=== PATIENT | male | born 1955 | race Caucasian/White ===

== ENCOUNTER → 2017-08-13 | Outpatient (CLI) | payer BC ==
--- NOTE | 2017-08-13 12:35 | US ---
EXAMINATION TYPE: US kidneys/renal and bladder DATE OF EXAM: 08/13/2017 COMPARISON: NONE CLINICAL HISTORY: R35.0 Frequency of micturition, N28.9 disorder of. Patient states history of renal stones on the right side. EXAM MEASUREMENTS: Right Kidney: 11.2 x 3.6 x 4.3 cm Left Kidney: 12.9 x 5.5 x 4.6 cm Post Void Residual Volume: 150.4 mL Technically difficult exam, kidneys are very hard to visualize. Right Kidney: thinned cortex the known right renal calculi are not seen. Left Kidney: lobular contour. There is questioned mild left hydronephrosis although suboptimally visu alized. Bladder: wnl Bilateral Jets seen: only left jet seen Normal Post Void Residual: no, 150 ml IMPRESSION: 1. Difficult visualization of the kidneys due to technical limitations noted by the bulk sugar handler. Mild left hydronephrosis is questioned in the patient's known right renal calculi are not seen. CT could be performed for further evaluation. 2. Mild right renal cortical thinning suggesting underlying medical renal disease. 3. Abnormal post void residual of 150 mL. Consider urinary bladder outlet obstruction or neurogenic b ladder.
== END | disposition home or self-care (01) ==
LOC: RADUSWWP 08:49
PROVIDERS: ATTEND Family Medicine
DX: N13.0 Hydronephrosis with ureteropelvic junction obstruction (principal); N28.89 Other specified disorders of kidney and ureter; R93.49 Abnormal radiologic findings on diagnostic imaging of other urinary organs
CPT/HCPCS: 76770

== ENCOUNTER 2019-09-17 07:38 | Emergency (ER) | payer BC, MEDICARE ==
[2019-09-17] MEDS ORDERED: FLUORESCEIN STRIPS 1 MG STRIP RIGHT EYE ONE (08:08)
[2019-09-17] MEDS ORDERED: PROPARACAINE 0.5% OPHTH DROPS 15 ML BTL RIGHT EYE STA (08:08)
[2019-09-17] MEDS ORDERED: KETOROLAC 0.5% OPHTH DROPS 5 ML BTL RIGHT EYE STA (08:42)
[2019-09-17] MEDS ORDERED: TOBRAMYCIN 0.3% OPHTH OINT 3.5 GM TUBE RIGHT EYE STA (08:43)
--- NOTE | 2019-09-17 09:02 | ED ---
Eye Problem HPI - General Chief complaint: Eye Problems Stated complaint: Eye injury Time Seen by Provider: 09/17/19 07:55 Source: patient, RN notes reviewed Mode of arrival: ambulatory Limitations: no limitations - History of Present Illness Initial comments: This is a 64-year-old male who states he was playing with his grandchildren when while running running when he got hit in the right eye with a stick complains of a formed by sensation no vision loss however no other injury reported this irritation in the feeling that there is something under his eyelid. No other modifying factors MD chief complaint: eye pain, eye injury - Related Data Previous Rx's Medication Instructions Recorded Ketorolac 0.5% Ophth Soln [Acular 1 drops RIGHT EYE QID #5 ml 09/17/19 0.5%] Tobramycin 0.3% Ophth Oint [Tobrex 1 applic RIGHT EYE TID #3 gm 09/17/19 0.3% Ophth Oint] Allergies Allergy/AdvReac Type Severity Reaction Status Date / Time No Known Allergies Allergy Verified 09/17/19 07:42 Review of Systems ROS Statement: Those systems with pertinent positive or pertinent negative responses have been documented in the HPI. ROS Other: All systems not noted in ROS Statement are negative. Past Medical History Past Medical History: Hypertension, Osteoarthritis (OA) Additional Past Medical History / Comment(s): lt. leg wound History of Any Multi-Drug Resistant Organisms: None Reported Past Surgical History: Hernia Repair Additional Past Surgical History / Comment(s): surgery to remove kidney stones, laser vein treatment -bilateral leg Past Anesthesia/Blood Transfusion Reactions: Postoperative Nausea & Vomiting (PONV) Past Psychological History: No Psychological Hx Reported Smoking Status: Never smoker Past Alcohol Use History: None Reported Past Drug Use History: None Reported - Past Family History Father History Unknown: Yes Family Medical History: Cancer Additional Family Medical History / Comment(s): -leukemia Mother Family Medical History: No Reported History General Exam - General Exam Comments Initial Comments: Is a well-developed well-nourished awake alert oriented times female Limitations: no limitations General appearance: alert, anxious Head exam: Present: atraumatic, normocephalic, normal inspection Eye exam: Present: PERRL, EOMI, conjunctival injection, other (Irritation as the palpebral conjunctiva ) Pupils: Present: normal accommodation ENT exam: Present: normal exam, mucous membranes moist Neck exam: Present: normal inspection, full ROM Neurological exam: Present: alert, oriented X3, CN II-XII intact Psychiatric exam: Present: normal affect, normal mood Course Vital Signs 09/17/19 07:40 Temperature 98.4 F Pulse Rate 80 Respiratory 18 Rate Blood Pressure 163/92 O2 Sat by Pulse 96 Oximetry Procedures - [facility] Protocol (Time Out) Performing Provider: Rashel Tomas Timeout Date: 09/17/19 Timeout Time: 08:20 Patient Identification (2 identifiers required): Verbal, Arm Band Site Marked: Not Applicable Final Confirmation: Procedure, Site - Procedures Initial comment: I did examine the patient's eye using both a slit lamp and it was lamp. I did anesthetize the eye using proparacaine. I then instilled fluorescein dye. Examination under will lamp evidence of a corneal abrasion of the right eye. Eversion of the lids reveals no evidence of foreign body. There is some edema seen to the upper lid however. Examination with a Wood lamp dated I did use a slit lamp. Patient does demonstrate a corneal abrasion to the right cornea as above. No evidence of any anterior chamber injury no hyphema noted.. Patient tolerated this well Medical Decision Making - Medical Decision Making Patient does demonstrate evidence of a corneal abrasion secondary to trauma. Patient will be placed on antibiotic ointment as well as ketorolac eyedrops. He is a follow-up with ophthalmology. We did discuss the pluses and minuses of an eye patch at this time I feel that it is not indicated. He will follow up tomorrow with ophthalmology. He does agree with this decision. Disposition Clinical Impression: Right corneal abrasion Disposition: HOME SELF-CARE Condition: Good Instructions (If sedation given, give patient instructions): Corneal Abrasion ( ED) Prescriptions: Ketorolac 0.5% Ophth Soln [Acular 0.5%] 1 drops RIGHT EYE QID #5 ml Tobramycin 0.3% Ophth Oint [Tobrex 0.3% Ophth Oint] 1 applic RIGHT EYE TID #3 gm Is patient prescribed a controlled substance at d/c from ED?: No Referrals: Dayne Comer DO [Primary Care Provider] - 1-2 days Miracle Saul MD [STAFF PHYSICIAN] - 1-2 days
[2019-09-17 09:17] VITALS: BP 137/78; PULSE 78; RESP 16; TEMP 97.8
== END 2019-09-17 09:16 | disposition home or self-care (01) ==
LOC: EC 07:38
DX: S05.01XA Injury of conjunctiva and corneal abrasion without foreign body, right eye, initial encounter (principal); W22.8XXA Striking against or struck by other objects, initial encounter; Y93.02 Activity, running
CPT/HCPCS: 99283

== ENCOUNTER 2024-09-19 12:31 | Observation (INO) | payer MEDICARE ==
[2024-09-19 12:38] VITALS: TEMP 97.7
--- NOTE | 2024-09-19 13:19 | ED ---
General Adult HPI - General Chief complaint: Syncope Stated complaint: Syncopal episode Time Seen by Provider: 09/19/24 12:49 Source: patient, RN notes reviewed Mode of arrival: EMS Limitations: no limitations - History of Present Illness Initial comments: Patient is a 69-year-old male present to the emergency department with syncopal episode. 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 Patient believes he did pass out completely. Patient states no injury. Patient states he feels fine at this time. No history of similar symptoms previously. No palpitations or chest pain. No dyspnea. No confusion or weakness. No back or abdominal pain. Patient denies any history of dysrhythmia or atrial fibrillation. - Related Data Previous Rx's Medication Instructions Recorded Ketorolac 0.5% Ophth Soln [Acular 1 drops RIGHT EYE QID #5 ml 09/17/19 0.5%] Tobramycin 0.3% Ophth Oint [Tobrex 1 applic RIGHT EYE TID #3 gm 09/17/19 0.3% Ophth Oint] Allergies Allergy/AdvReac Type Severity Reaction Status Date / Time No Known Allergies Allergy Verified 09/19/24 12:36 Review of Systems ROS Statement: Those systems with pertinent positive or pertinent negative responses have been documented in the HPI. ROS Other: All systems not noted in ROS Statement are negative. Constitutional: Denies: fever Eyes: Denies: eye pain ENT: Denies: ear pain Respiratory: Denies: dyspnea Cardiovascular: Denies: chest pain, palpitations Endocrine: Denies: fatigue Gastrointestinal: Denies: abdominal pain Neurological: Denies: headache, weakness, confusion Past Medical History Past Medical History: Hypertension, Osteoarthritis (OA) Additional Past Medical History / Comment(s): lt. leg wound History of Any Multi-Drug Resistant Organisms: None Reported Past Surgical History: Hernia Repair Additional Past Surgical History / Comment(s): surgery to remove kidney stones, laser vein treatment -bilateral leg Past Anesthesia/Blood Transfusion Reactions: Postoperative Nausea & Vomiting (PONV) Past Psychological History: No Psychological Hx Reported Past Alcohol Use History: None Reported Past Drug Use History: None Reported - Past Family History Father History Unknown: Yes Family Medical History: Cancer Additional Family Medical History / Comment(s): -leukemia Mother Family Medical History: No Reported History General Exam Limitations: no limitations General appearance: alert, in no apparent distress Head exam: Present: atraumatic, normocephalic Eye exam: Present: normal appearance, PERRL, EOMI ENT exam: Present: normal oropharynx Neck exam: Present: normal inspection. Absent: tenderness, meningismus Respiratory exam: Present: normal lung sounds bilaterally Cardiovascular Exam: Present: tachycardia, irregular rhythm Expanded Peripheral pulses: 2+: Radial (R), Radial (L), Posterior Tibialis (R), Posterior Tibialis (L) GI/Abdominal exam: Present: soft. Absent: tenderness, pulsatile mass Extremities exam: Present: pedal edema (Patient states chronic). Absent: calf tenderness Neurological exam: Present: alert, oriented X3, CN II-XII intact. Absent: motor sensory deficit Expanded Neurological exam: Present: protecting the airway Patient oriented to: Present: person, place, time Speech: Present: fluid speech Cranial nerves: EOM's Intact: Normal, Facial Sensation: Normal Sensory exam: Upper Extremity Light Touch: Normal, Lower Extremity Light Touch: Normal Motor strength exam: RUE: 5, LUE: 5, RLE: 5, LLE: 5 Eye Response: (4) open spontaneously Motor Response: (6) obeys commands Verbal Response: (5) oriented Psychiatric exam: Present: normal affect, normal mood Skin exam: Present: normal color Course Vital Signs 09/19/24 09/19/24 09/19/24 12:33 12:55 13:42 Temperature 97.7 F Pulse Rate 152 H 126 H Pulse Rate [ 132 H Receiving 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 sent in by a medical professional or institution (, PA, EMERGENCY ROOM TECH, urgent care, hospital, or [facility]...) When possible be specific @ -No Did you speak to anyone other than the patient for history (EMS, parent, family, police, friend...)? What history was obtained from this source @ -No Did you review nursing and triage notes (agree or disagree)? Why? @ -I reviewed and agree with nursing and triage notes Were old charts reviewed (outside hosp., previous admission, EMS record, old EKG, old radiological studies, urgent care reports/EKG's, [facility] records)? Report findings @ -No old charts were reviewed Differential Diagnosis (chest pain, altered mental status, abdominal pain women, abdominal pain men, vaginal bleeding, weakness, fever, dyspnea, syncope, headache, dizziness, GI bleed, back pain, seizure, CVA, palpatations, mental health, musculoskeletal)? @ -Differential Syncope: Valvular disease, hypertrophic cardiomyopathy, pulmonary embolism, tamponade, tachycardia, bradycardia, MO, hypovolemia, hemorrhage, dissection, anemia, intracranial hemorrhage, seizure, hypoglycemia, carbon monoxide poisoning, this is not meant to be an all-inclusive list. EKG interpreted by me (3pts min.). @ -As above X-rays interpreted by me (1pt min.). @ -Chest x-ray shows no acute process CT interpreted by me (1pt min.). @ -CT scan of the brain shows no acute abnormality U/S interpreted by me (1pt. min.). @ -None done What testing was considered but not performed or refused? (CT, X-rays, U/S, labs)? Why? @ -None What meds were considered but not given or refused? Why? @ -None Did you discuss the management of the patient with other professionals (professionals i.e. , PA, EMERGENCY ROOM TECH, lab, RT, psych nurse, marriage and family social worker, water resources business segment leader, teacher, mortgage loan officer, case operator)? Give summary @ -Case discussed with Dr. Gregg who will admit covering Dr. Faria who admits for Dr. Irwin Was smoking cessation discussed for >3mins.? @ -No Was critical care preformed (if so, how long)? @ -32 minutes critical care time Were there social determinants of health that impacted care today? How? (Homelessness, low income, unemployed, alcoholism, drug addiction, transportation, low edu. Level, literacy, decrease access to med. care, fdc, rehab)? @ -No Was there de-escalation of care discussed even if they declined (Discuss DNR or withdrawal of care, Hospice)? DNR status @ -No What co-morbidities impacted this encounter? (DM, HTN, Smoking, COPD, CAD, Cancer, CVA, ARF, Chemo, Hep., AIDS, mental health diagnosis, sleep apnea, morbid obesity)? @ -None Was patient admitted / discharged? Hospital course, mention meds given and route, prescriptions, significant lab abnormalities, going to OR and other pertinent info. @ -Patient presents with syncopal episode however has A-fib RVR. Otherwise evaluation unremarkable. Patient will be admitted with cardiology consult. Patient reevaluated and updated. Admission orders written. Undiagnosed new problem with uncertain prognosis? @ -No Drug Therapy requiring intensive monitoring for toxicity (Heparin, Nitro, Insulin, Cardizem)? @ -Cardizem drip. Heparin drip will be started Were any procedures done? @ -No Diagnosis/symptom? @ -Syncope, A-fib with RVR Acute, or Chronic, or Acute on Chronic? @ -Acute, acute Uncomplicated (without systemic symptoms) or Complicated (systemic symptoms)? @ -Default Side effects of treatment? @ -No Exacerbation, Progression, or Severe Exacerbation? @ -No Poses a threat to life or bodily function? How? (Chest pain, USA, MO, pneumonia, PE, COPD, DKA, ARF, appy, cholecystitis, CVA, Diverticulitis, Homicidal, Suicidal, threat to staff... and all critical care pts) @ -Threat to cardiac function - Lab Data Result diagrams: 09/19/24 13:23 09/19/24 13:23 Lab Results 09/19/24 09/19/24 09/19/24 Range/Units 13:23 13:23 13:23 WBC 5.47 (4.50-10.00) 10*3/uL RBC 4.80 (4.40-5.60) 10*6/uL Hgb 13.8 (13.0-17.0) g/dL Hct 41.2 (39.6-50.0) % MCV 85.8 (80.0-97.0) fL MCH 28.8 (27.0-32.0) pg MCHC 33.5 (32.0-37.0) g/dL Plt Count 140 (140-440) 10*3/uL MPV 10.8 (9.5-12.2) fL Immature Gran % (Auto) 0.4 % Neutrophils % 71.8 % Lymphocytes % 16.3 % Monocytes % 9.9 % Eosinophils % 0.9 % Basophils % 0.7 % Immature Gran # 0.02 (0.00-0.04) 10*3/uL Neutrophils # 3.93 (1.80-7.70) 10*3/uL Lymphocytes # 0.89 L (0.90-5.00) 10*3/uL Monocytes # 0.54 (0.20-1.00) 10*3/uL Eosinophils # 0.05 (0.04-0.35) 10*3/uL Basophils # 0.04 (0.00-0.10) 10*3/uL PT 11.6 (10.0-12.5) sec INR 1.1 (<1.2) APTT 23.0 (22.0-30.0) sec Sodium 139 (137-145) mmol/L Potassium 4.3 (3.5-5.1) mmol/L Chloride 107 (98-107) mmol/L Carbon Dioxide 24 (22-30) mmol/L Anion Gap 8 mmol/L BUN 24 H (9-20) mg/dL Creatinine 0.99 (0.66-1.25) mg/dL Est GFR (CKD-EPI)AfAm 89 (>60 ml/min/1.73 sqM) Est GFR (CKD-EPI)NonAf 77 (>60 ml/min/1.73 sqM) Glucose 136 H (74-99) mg/dL Calcium 8.5 (8.4-10.2) mg/dL Magnesium 2.0 (1.6-2.3) mg/dL Total Bilirubin 0.7 (0.2-1.3) mg/dL AST 25 (17-59) U/L ALT 19 (4-49) U/L Alkaline Phosphatase 45 (38-126) U/L Troponin I (0.000-0.034) ng/mL Total Protein 5.9 L (6.3-8.2) g/dL Albumin 3.4 L (3.5-5.0) g/dL 09/19/24 Range/Units 13:23 WBC (4.50-10.00) 10*3/uL RBC (4.40-5.60) 10*6/uL Hgb (13.0-17.0) g/dL Hct (39.6-50.0) % MCV (80.0-97.0) fL MCH (27.0-32.0) pg MCHC (32.0-37.0) g/dL Plt Count (140-440) 10*3/uL MPV (9.5-12.2) fL Immature Gran % (Auto) % Neutrophils % % Lymphocytes % % Monocytes % % Eosinophils % % Basophils % % Immature Gran # (0.00-0.04) 10*3/uL Neutrophils # (1.80-7.70) 10*3/uL Lymphocytes # (0.90-5.00) 10*3/uL Monocytes # (0.20-1.00) 10*3/uL Eosinophils # (0.04-0.35) 10*3/uL Basophils # (0.00-0.10) 10*3/uL PT (10.0-12.5) sec INR (<1.2) APTT (22.0-30.0) sec Sodium (137-145) mmol/L Potassium (3.5-5.1) mmol/L Chloride (98-107) mmol/L Carbon Dioxide (22-30) mmol/L Anion Gap mmol/L BUN (9-20) mg/dL Creatinine (0.66-1.25) mg/dL Est GFR (CKD-EPI)AfAm (>60 ml/min/1.73 sqM) Est GFR (CKD-EPI)NonAf (>60 ml/min/1.73 sqM) Glucose (74-99) mg/dL Calcium (8.4-10.2) mg/dL Magnesium (1.6-2.3) mg/dL Total Bilirubin (0.2-1.3) mg/dL AST (17-59) U/L ALT (4-49) U/L Alkaline Phosphatase (38-126) U/L Troponin I <0.012 (0.000-0.034) ng/mL Total Protein (6.3-8.2) g/dL Albumin (3.5-5.0) g/dL Disposition Clinical Impression: Atrial fibrillation with RVR Disposition: ADMITTED IP TO THIS [facility] Condition: Serious Is patient prescribed a controlled substance at d/c from ED?: No Referrals: Dayne Comer DO [Primary Care Provider] - 1-2 days Time of Disposition: 14:09
[2024-09-19 13:34] LABS: Basophils # (A) 0.04 10*3/uL (0.00-0.10); Basophils % (A) 0.7 %; Eosinophils # (A) 0.05 10*3/uL (0.04-0.35); Eosinophils % (A) 0.9 %; HCT 41.2 % (39.6-50.0); HGB 13.8 g/dL (13.0-17.0); Lymphocytes # (A) 0.89 10*3/uL (0.90-5.00); Lymphocytes % (A) 16.3 %; MCH 28.8 pg (27.0-32.0); MCHC 33.5 g/dL (32.0-37.0); MCV 85.8 fL (80.0-97.0); Mean Platelet Volume 10.8 fL (9.5-12.2); Monocytes # (A) 0.54 10*3/uL (0.20-1.00); Monocytes % (A) 9.9 %; Neutrophils # (A) 3.93 10*3/uL (1.80-7.70); Neutrophils % (A) 71.8 %; Platelet Count 140 10*3/uL (140-440); WBC 5.47 10*3/uL (4.50-10.00)
[2024-09-19 13:43] LABS: ALT 19 U/L (4-49); AST 25 U/L (17-59); African American GFR (CKD) 89 (>60 ml/min/1.73 sqM); Albumin 3.4 g/dL (3.5-5.0); Alkaline Phosphatase 45 U/L (38-126); Anion Gap 8 mmol/L; Blood Urea Nitrogen 24 mg/dL (9-20); Calcium 8.5 mg/dL (8.4-10.2); Carbon Dioxide 24 mmol/L (22-30); Chloride 107 mmol/L (98-107); Glucose 136 mg/dL (74-99); Non-African American GFR(CKD) 77 (>60 ml/min/1.73 sqM); Potassium 4.3 mmol/L (3.5-5.1); Sodium 139 mmol/L (137-145); Total Bilirubin 0.7 mg/dL (0.2-1.3); Total Protein 5.9 g/dL (6.3-8.2)
[2024-09-19] MEDS: DILTIAZEM 5 MG/ML 5 ML VIAL IVP STA (13:44)
[2024-09-19 13:48] LABS: INR 1.1 (<1.2); Prothrombin Time 11.6 sec (10.0-12.5)
--- NOTE | 2024-09-19 13:48 | XR ---
EXAMINATION TYPE: XR chest 2V DATE OF EXAM: 09/19/2024 1:39 PM COMPARISON: None CLINICAL INDICATION: Male, 69 years old with history of dysrhythmia, shortness of breath TECHNIQUE: PA and lateral views FINDINGS: Heart normal size. Atherosclerotic arch calcifications. Strandy atelectasis left base. Hyperinflation with increased retrosternal clear space. DISH mid and lower thoracic spine. No consolidation or pleu ral effusion. IMPRESSION: COPD. No acute process seen. [facility], Workstation: [id number], 09/19/2024 1:45 PM
[2024-09-19] MEDS: DILTIAZEM 125 MG in DEXTROSE 5% IN WATER 100 ML IV SCH (13:49)
--- NOTE | 2024-09-19 13:51 | CT ---
EXAMINATION TYPE: CT brain wo con CT DLP: 1199.4 mGycm, Automated exposure control for dose reduction was used. DATE OF EXAM: 09/19/2024 1:40 PM COMPARISON: None. CLINICAL INDICATION:Male, 69 years old with history of syncope, Syncope TECHNIQUE: Brain: Multiple axial CT images of the brain were obtained without IV contrast. . Coronal and sagitta l reformats reviewed. FINDINGS: Brain: Extra-axial spaces: No abnormal extra-axial fluid collections. Ventricular system: Within normal limits Cerebral parenchyma: No acute intraparenchymal hemorrhage or mass effect. The rodriguez-white junction is well differentiated. Cerebellum: Ab-cisterna magna. Otherwise unremarkable. Mass effect: No evidence of midline shift. Intracranial vasculature: Atherosclerotic calcifications of the intracranial vessels. Soft tissues: Normal. Calvarium/osseous structures: No depressed skull fracture. Paranasal sinuses and mastoid air cells: Clear Visualized orbits: Orbital contents are intact. IMPRESSION: No acute intracranial process. [facility], , 09/19/2024 1:48 PM
[2024-09-19] MEDS ORDERED: NALOXONE 0.4 MG/ML 1 ML VIAL IV PRN (14:09)
[2024-09-19 14:48] LABS: T4, Free (Free Thyroxine) 1.07 ng/dL (0.78-2.19)
[2024-09-19] MEDS: HEPARIN SOD,PORK IN 0.45% NACL 25,000 UNIT in 0.45% NACL 1 250ML.BAG IV SCH (14:50)
[2024-09-19] MEDS: HEPARIN SODIUM 1,000 UN/ML (10ML VL) IV ONE (14:50)
--- NOTE | 2024-09-19 20:56 | P.HPIM ---
History of Present Illness This is a pleasant 69 years old male with no significant past medical history. Patient presents because of dizziness of 1 day duration followed by syncope happened while he was sitting he does not know but maybe lasted for a few mi nutes Currently no chest pain or dyspnea. No headache dizziness weakness numbness. No urinary or GI complaints. He denies smoking alcohol or illicit drugs. He has no fever blood pressure stable labs unremarkable including CBC, BMP, LFT, INR, troponin x 2. TSH is normal at 0.5 as well as free T4. CT of the brain is negative for acute process. Chest x-ray showing no acute cardiopulmonary proce ss. EKG showing atrial fibrillation with a rate of [address]-T changes. Review of Systems Review of systems CONSTITUTIONAL: No fever, no malaise, no fatigue. HEENT: No recent visual problems or hearing problems. Denied any sore throat. CARDIOVASCULAR: No orthopnea, PND, no palpitations, no syncope. PULMONARY: No shortness of breath, no cough, no hemoptysis. GASTROINTESTINAL: No diarrhea, no nausea, no vomiting, no abdominal pain. Normoactive bowel sounds. NEUROLOGICAL: No headaches, no weakness, no numbness. HEMATOLOGICAL: Denies any bleeding or petechiae. GENITOURINARY: Denies any burning micturition, frequency, or urgency. MUSCULOSKELETAL/RHEUMATOLOGICAL: Denies any joint pain, swelling, or any muscle pain. ENDOCRINE: Denies any polyuria or polydipsia. Past Medical History Past Medical History: Hypertension, Osteoarthritis (OA) Additional Past Medical History / Comment(s): lt. leg wound History of Any Multi-Drug Resistant Organisms: None Reported Past Surgical History: Hernia Repair Additional Past Surgical History / Comment(s): surgery to remove kidney stones, laser vein treatment -bilateral leg Past Anesthesia/Blood Transfusion Reactions: Postoperative Nausea & Vomiting (PONV) Past Psychological History: No Psychological Hx Reported Past Alcohol Use History: None Reported Past Drug Use History: None Reported - Past Family History Father History Unknown: Yes Family Medical History: Cancer Additional Family Medical History / Comment(s): -leukemia Mother Family Medical History: No Reported History Medications and Allergies Home Medications Medication Instructions Recorded Confirmed Type No Known Home Medications 09/19/24 09/19/24 History Allergies Allergy/AdvReac Type Severity Reaction Status Date / Time No Known Allergies Allergy Verified 09/19/24 14:15 Physical Exam Vitals: Vital Signs Temp Pulse Pulse Resp BP Pulse Ox 09/19/24 18:14 89 18 122/88 96 09/19/24 16:44 87 18 116/85 98 09/19/24 15:36 103 H 18 123/84 96 09/19/24 14:49 134 H 18 110/75 96 09/19/24 13:42 126 H 18 112/76 99 09/19/24 12:55 132 H 09/19/24 12:33 97.7 F 152 H 18 112/78 96 Intake and Output 09/19/24 09/19/24 09/19/24 06:59 14:59 22:59 Intake Total 4.583 20.167 Balance 4.583 20.167 Intake: Intake, IV Titration 4.583 20.167 Amount Diltiazem 125 mg In 4.583 20.167 Dextrose 5% in Water 100 ml @ 5 MG/HR 5 mls/hr IV .Q24H [facility] Rx#:[id number] Other: Weight 99.79 kg GENERAL: The patient is alert and oriented x3, not in any acute distress. Well developed, well nourished. HEENT: Pupils are round and equally reacting to light. EOMI. No scleral icterus. No conjunctival pallor. Normocephalic, atraumatic. No pharyngeal erythema. No thyromegaly. CARDIOVASCULAR: S1 and S2 present. No murmurs, rubs, or gallops. PULMONARY: Chest is clear to auscultation, no wheezing , no crackles. ABDOMEN: Soft, nontender, nondistended, normoactive bowel sounds. No palpable organomegaly. MUSCULOSKELETAL: No joint swelling or deformity. EXTREMITIES: No cyanosis, clubbing, or pedal edema. NEUROLOGICAL: Gross neurological examination did not reveal any focal deficits. SKIN: No rashes. no petechiae. Results CBC & Chem 7: 09/19/24 13:23 09/19/24 13:23 Labs: Abnormal Lab Results - Last 24 Hours (Table) 09/19/24 09/19/24 Range/Units 13:23 13:23 Lymphocytes # 0.89 L (0.90-5.00) 10*3/uL BUN 24 H (9-20) mg/dL Glucose 136 H (74-99) mg/dL Total Protein 5.9 L (6.3-8.2) g/dL Albumin 3.4 L (3.5-5.0) g/dL Assessment and Plan Assessment: Atrial fibrillation, new onset Syncope, secondary to above Plan: Continue with Cardizem drip Continue with heparin drip Check D-dimer Check echocardiogram Cardiology team consult GI prophylaxis: Pepcid DVT prophylaxis heparin Prognosis guarded
[2024-09-19] MEDS: diphenhydrAMINE 25 MG CAP PO STA (21:57)
[2024-09-20] MEDS: HEPARIN SODIUM 1,000 UN/ML (10ML VL) IV PRN (00:17)
[2024-09-20 06:39] LABS: Basophils % (A) 0.7 %; Eosinophils % (A) 2.4 %; HCT 39.8 % (39.6-50.0); HGB 13.2 g/dL (13.0-17.0); Lymphocytes % (A) 27.7 %; MCH 28.3 pg (27.0-32.0); MCHC 33.2 g/dL (32.0-37.0); MCV 85.2 fL (80.0-97.0); Mean Platelet Volume 10.3 fL (9.5-12.2); Monocytes # (A) 0.53 10*3/uL (0.20-1.00); Monocytes % (A) 9.8 %; Neutrophils % (A) 59.2 %; Platelet Count 129 10*3/uL (140-440); RBC 4.67 10*6/uL (4.40-5.60); RDW 15.2 % (11.5-14.5); WBC 5.41 10*3/uL (4.50-10.00)
[2024-09-20 06:40] LABS: Basophils # (A) 0.04 10*3/uL (0.00-0.10); Eosinophils # (A) 0.13 10*3/uL (0.04-0.35); Immature Platelet Fraction 1.6 % (1.1-6.1)
[2024-09-20 07:02] LABS: INR 1.1 (<1.2); Partial Thromboplastin Time 54.3 sec (22.0-30.0); Prothrombin Time 11.8 sec (10.0-12.5)
[2024-09-20 07:14] LABS: ALT 18 U/L (4-49); AST 20 U/L (17-59); African American GFR (CKD) 85 (>60 ml/min/1.73 sqM); Albumin 3.1 g/dL (3.5-5.0); Alkaline Phosphatase 53 U/L (38-126); Anion Gap 6 mmol/L; Blood Urea Nitrogen 30 mg/dL (9-20); Calcium 8.2 mg/dL (8.4-10.2); Carbon Dioxide 25 mmol/L (22-30); Chloride 107 mmol/L (98-107); Glucose 102 mg/dL (74-99); Non-African American GFR(CKD) 74 (>60 ml/min/1.73 sqM); Potassium 3.7 mmol/L (3.5-5.1); Sodium 138 mmol/L (137-145); Total Bilirubin 0.6 mg/dL (0.2-1.3); Total Protein 5.5 g/dL (6.3-8.2)
[2024-09-20 07:40] VITALS: BP 129/81; PULSE 73; RESP 14
--- NOTE | 2024-09-20 07:56 | P.PN ---
Subjective This is a pleasant 69 years old male with no significant past medical history. Patient presents because of dizziness of 1 day duration followed by syncope happened while he was sitting he does not know but maybe lasted for a few minutes Currently no chest pain or dyspnea. No headache dizziness weakness numbness. No urinary or GI complaints. He denies smoking alcohol or illicit drugs. He has no fever blood pressure stable labs unremarkable including CBC, BMP, LFT, INR, troponin x 2. TSH is normal at 0.5 as well as free T4. CT of the brain is negative for acute process. Chest x-ray showing no acute cardiopulmonary process. EKG showing atrial fibrillation with a rate of [address]-T changes. 09/20 Patient feels fine with no chest pain or dyspnea No dizziness or more episodes of syncope He has 1+ bilateral pitting leg edema He remains on Cardizem and heparin drip D-dimer elevated at 1.0. Will order CT of the chest to rule out PE given his symptoms and elevated D-dimer. Review of systems CONSTITUTIONAL: No fever, no malaise, no fatigue. HEENT: No recent visual problems or hearing problems. Denied any sore throat. CARDIOVASCULAR: No orthopnea, PND, no palpitations, no syncope. PULMONARY: No shortness of breath, no cough, no hemoptysis. GASTROINTESTINAL: No diarrhea, no nausea, no vomiting, no abdominal pain. Normoactive bowel sounds. NEUROLOGICAL: No headaches, no weakness, no numbness. HEMATOLOGICAL: Denies any bleeding or petechiae. GENITOURINARY: Denies any burning micturition, frequency, or urgency. MUSCULOSKELETAL/RHEUMATOLOGICAL: Denies any joint pain, swelling, or any muscle pain. ENDOCRINE: Denies any polyuria or polydipsia. Active Medications Generic Name Dose Route Start Last Admin Trade Name Freq PRN Reason Stop Dose Admin Apixaban 5 mg 09/20/24 09:00 Apixaban 5 Mg Tab PO BID [facility] Protocol Heparin Sodium (Porcine) 0 unit 09/19/24 14:11 09/20/24 00:17 Heparin Sodium 1,000 Un/Ml (10ml Vl) IV 2,475 unit PER PROTOCOL PRN Administration Low PTT Protocol Heparin Sodium/Sodium Chloride 250 mls @ 9.999 mls/hr 09/19/24 14:15 09/20/24 00:19 25,000 unit/ Sodium Chloride IV 12.02 units/kg/hr .Q24H [facility]NA 11.995 mls/hr Titration Protocol 10.02 UNITS/KG/HR Sodium Chloride 1,000 mls @ 100 mls/hr 09/20/24 08:00 Saline 0.9% IV 09/20/24 17:59 .Q10H [facility] Metoprolol Succinate 50 mg 09/20/24 09:00 Metoprolol Succinate (Er) 50 Mg Tab.Er.24h PO DAILY [facility] Naloxone HCl 0.2 mg 09/19/24 14:09 Naloxone 0.4 Mg/Ml 1 Ml Vial IV Q2M PRN Opioid Reversal Objective - Vital Signs Vital signs: Vital Signs Temp 97.7 F 09/19/24 12:33 Pulse 73 09/20/24 07:39 Resp 14 09/20/24 07:39 BP 129/81 09/20/24 07:39 Pulse Ox 98 09/20/24 07:39 FiO2 Intake & Output 09/19/24 09/20/24 09/20/24 18:59 06:59 18:59 Intake Total 24.750 94.824 Balance 24.750 94.824 Weight 99.79 kg Intake: Intake, IV Titration 24.750 94.824 Amount Diltiazem 125 mg In 24.750 Dextrose 5% in Water 100 ml @ 5 MG/HR 5 mls/hr IV .Q24H [facility] Rx#:[id number] Heparin Sod,Pork in 0.45% 94.824 NaCl 25,000 unit In 0.45 % NaCl 1 250ml.bag @ 10. 02 UNITS/KG/HR 9.999 mls/ hr IV .Q24H [facility] Rx#: [id number] - Exam GENERAL: The patient is alert and oriented x3, not in any acute distress. Well developed, well nourished. HEENT: Pupils are round and equally reacting to light. EOMI. No scleral icterus. No conjunctival pallor. Normocephalic, atraumatic. No pharyngeal erythema. No thyromegaly. CARDIOVASCULAR: S1 and S2 present. No murmurs, rubs, or gallops. PULMONARY: Chest is clear to auscultation, no wheezing , no crackles. ABDOMEN: Soft, nontender, nondistended, normoactive bowel sounds. No palpable organomegaly. MUSCULOSKELETAL: No joint swelling or deformity. EXTREMITIES: No cyanosis, clubbing, or pedal edema. NEUROLOGICAL: Gross neurological examination did not reveal any focal deficits. SKIN: No rashes. no petechiae. - Labs CBC & Chem 7: 09/20/24 05:51 09/20/24 05:51 Labs: Abnormal Lab Results - Last 24 Hours (Table) 09/19/24 09/19/24 09/19/24 Range/Units 13:23 13:23 21:03 Plt Count (140-440) 10*3/uL Lymphocytes # 0.89 L (0.90-5.00) 10*3/uL APTT 39.0 H (22.0-30.0) sec D-Dimer 1.05 H (<0.60) mg/L FEU BUN 24 H (9-20) mg/dL Glucose 136 H (74-99) mg/dL Calcium (8.4-10.2) mg/dL Total Protein 5.9 L (6.3-8.2) g/dL Albumin 3.4 L (3.5-5.0) g/dL 09/20/24 09/20/24 09/20/24 Range/Units 05:51 05:51 05:51 Plt Count 129 L (140-440) 10*3/uL Lymphocytes # (0.90-5.00) 10*3/uL APTT 54.3 H (22.0-30.0) sec D-Dimer (<0.60) mg/L FEU BUN 30 H (9-20) mg/dL Glucose 102 H (74-99) mg/dL Calcium 8.2 L (8.4-10.2) mg/dL Total Protein 5.5 L (6.3-8.2) g/dL Albumin 3.1 L (3.5-5.0) g/dL Assessment and Plan Assessment: Atrial fibrillation, new onset Syncope, secondary to above Bilateral leg swelling Elevated D-dimer, rule out PE Plan: Continue with Cardizem drip Continue with heparin drip Check D-dimer was elevated. Will order CT of the chest to rule out PE. Continue with hydration. Normal saline x 10 hours ordered Check echocardiogram Cardiology team consult GI prophylaxis: Pepcid DVT prophylaxis heparin Prognosis guarded
[2024-09-20] MEDS: APIXABAN 5 MG TAB PO SCH (08:23)
[2024-09-20] MEDS: SODIUM CHLORIDE 0.9% 1,000 ML IV SCH (08:23)
[2024-09-20] MEDS: METOPROLOL SUCCINATE (ER) 50 MG TAB.ER.24H PO SCH (08:23)
--- NOTE | 2024-09-20 09:00 | CT ---
EXAMINATION TYPE: CT angio chest DATE OF EXAM: 09/20/2024 8:21 AM COMPARISON: Radiographs 09/19/2024 CLINICAL INDICATION: Male, 69 years old with history of pe protocol; ELEVATED D-DIMER, shortness of b reath TECHNIQUE/CONTRAST: CTA scan of the thorax is performed with IV Contrast, patient injected with 85 mL of Isovue 370, MIP images are created and reviewed these are created on a separate workstation.. CT DLP: 379.1 mGycm, Automated exposure control for dose reduction was used. FINDINGS: The heart is normal size without pericardial effusion. No flattening of the interventricular septum o r reflux of contrast into the hepatic veins. Mild LAD and circumflex coronary calcifications are pres ent. Ascending aorta ectatic at 3.8 cm. Mild atherosclerotic arch calcifications. Aberrant direct takeoff of the left vertebral artery directly from the aortic arch. Suboptimal enhancement of the pulmonary arterial system. However, no definite pulmonary embolus is se en. No thoracic lymphadenopathy by CT size criteria. Prominent dependent atelectasis along the posterior lungs especially at the lung bases. Mild emphysem atous change. Minimal groundglass density posterior right upper lobe. Otherwise, no consolidation or pleural effusi on. Tiny hiatal hernia. Mild circumferential wall thickening distal esophagus. Bones: Patient with a lower thoracic spine with accentuated lower thoracic kyphosis. IMPRESSION: 1. Suboptimal contrast bolus. No definite pulmonary embolus. 2. COPD with mild emphysema. Groundglass focus posterior right upper lobe is nonspecific. This may re present a small early infectious/inflammatory focus. 3. Prominent dependent and basilar subsegmental atelectasis. 4. Tiny hiatal hernia. Mild circumferential wall thickening distal esophagus may reflect a mild esoph agitis. [facility], , 09/20/2024 8:58 AM
--- NOTE | 2024-09-20 10:25 | P.CRDCN ---
History of Present Illness History of present illness: HISTORY OF PRESENT ILLNESS: This is a 69-year-old male with no significant past medical history. 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 We have been asked to see the patient in consultation for atrial fibrillation. Patient examined at the bedside in the emergency room. The patient states yesterday he started having dizziness that happened out of the blue. He does report that he passed out very briefly as well. He states that he has been stressed out recently and has been working 16 to 18 hours a day. He denies any chest pain or shortness of breath. He came to the hospital for further evaluation was found to be in atrial fibrillation with RVR. He denies any known history of atrial fibrillation. He was started on IV Cardizem and subsequently converted to sinus mechanism with PACs. He is maintaining sinus mechanism at the time of examination. DIAGNOSTICS: - EKG reveals A-fib with RVR. - Chest xray COPD. No acute process seen. - Laboratory data: WBC 5.41. Hemoglobin 13.2. Platelet count 129. Sodium 138. Potassium 3.7. Troponin negative x 3. TSH 0.565. - Current home cardiac medications include none. REVIEW OF SYSTEMS: At the time of my exam: CONSTITUTIONAL: Denies fever or chills. HEENT: Denies blurred vision, vision changes, or eye pain. Denies hemoptysis CARDIOVASCULAR: Denies chest pain. Denies orthopnea. Denies PND. Denies palpitations RESPIRATORY: Denies shortness of breath. GASTROINTESTINAL: Denies abdominal pain. Denies nausea or vomiting. HEMATOLOGIC: Denies bleeding disorders. GENITOURINARY: Denies any blood in urine. SKIN: Denies pruitis. Denies rash. PHYSICAL EXAM: VITAL SIGNS: Reviewed. GENERAL: Well-developed in no acute distress. HEENT: Head is normocephalic. Pupils are equal, round. Sclerae anicteric. Mucous membranes of the mouth are moist. Neck supple. No JVD or thyromegaly LUNGS: Respirations even and unlabored. Lungs essentially clear to auscultation bilaterally. HEART: Regular rate and rhythm. S1 and S2 heard. ABDOMEN: Soft. Nondistended. Nontender. EXTREMITIES: Normal range of motion. No clubbing or cyanosis. Peripheral pulses intact. No lower extremity edema NEUROLOGIC: Awake and alert. Oriented x 3. ASSESSMENT: Dizziness with syncope New onset atrial fibrillation with RVR, currently maintaining sinus mechanism PLAN: Will obtain echocardiogram on an outpatient basis Patient with [id number] score of 1. Will begin Eliquis 5 mg twice a day for 1 month. Long-term anticoagulation to be determined based upon results of Holter monitor. 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 Latham. Appointment made for October 18, 2024 at 11 AM Nurse practitioner note has been reviewed by physician. Signing provider agrees with the documented findings, assessment, and plan of care documented by [employer] as a scribe. Past Medical History Past Medical History: Hypertension, Osteoarthritis (OA) Additional Past Medical History / Comment(s): lt. leg wound History of Any Multi-Drug Resistant Organisms: None Reported Past Surgical History: Hernia Repair Additional Past Surgical History / Comment(s): surgery to remove kidney stones, laser vein treatment -bilateral leg Past Anesthesia/Blood Transfusion Reactions: Postoperative Nausea & Vomiting (PONV) Past Psychological History: No Psychological Hx Reported Past Alcohol Use History: None Reported Past Drug Use History: None Reported - Past Family History Father History Unknown: Yes Family Medical History: Cancer Additional Family Medical History / Comment(s): -leukemia Mother Family Medical History: No Reported History Medications and Allergies Home Medications Medication Instructions Recorded Confirmed Type No Known Home Medications 09/19/24 09/19/24 History Allergies Allergy/AdvReac Type Severity Reaction Status Date / Time No Known Allergies Allergy Verified 09/19/24 14:15 Physical Exam Vitals: Vital Signs Temp Pulse Pulse Resp BP Pulse Ox 09/20/24 07:39 73 14 129/81 98 09/20/24 06:04 74 17 125/65 95 09/20/24 04:00 71 18 09/20/24 02:26 73 17 09/20/24 00:13 70 17 130/107 99 09/19/24 20:54 100 18 125/56 97 09/19/24 18:14 89 18 122/88 96 09/19/24 16:44 87 18 116/85 98 09/19/24 15:36 103 H 18 123/84 96 09/19/24 14:49 134 H 18 110/75 96 09/19/24 13:42 126 H 18 112/76 99 09/19/24 12:55 132 H 09/19/24 12:33 97.7 F 152 H 18 112/78 96 Intake and Output 09/19/24 09/20/24 09/20/24 22:59 06:59 14:59 Intake Total 20.167 94.824 Balance 20.167 94.824 Intake: Intake, IV Titration 20.167 94.824 Amount Diltiazem 125 mg In 20.167 Dextrose 5% in Water 100 ml @ 5 MG/HR 5 mls/hr IV .Q24H [facility] Rx#:[id number] Heparin Sod,Pork in 0.45% 94.824 NaCl 25,000 unit In 0.45 % NaCl 1 250ml.bag @ 10. 02 UNITS/KG/HR 9.999 mls/ hr IV .Q24H [facility] Rx#: [id number] Results 09/20/24 05:51 09/20/24 05:51 Cardiac Enzymes 09/19/24 09/19/24 09/19/24 Range/Units 13:23 13:23 16:01 AST 25 (17-59) U/L Troponin I <0.012 <0.012 (0.000-0.034) ng/mL 09/19/24 09/20/24 Range/Units 21:03 05:51 AST 20 (17-59) U/L Troponin I <0.012 (0.000-0.034) ng/mL Coagulation 09/19/24 09/19/24 09/20/24 Range/Units 13:23 21:03 05:51 PT 11.6 11.8 (10.0-12.5) sec APTT 23.0 39.0 H 54.3 H (22.0-30.0) sec CBC 09/19/24 09/20/24 Range/Units 13:23 05:51 WBC 5.47 5.41 (4.50-10.00) 10*3/uL RBC 4.80 4.67 (4.40-5.60) 10*6/uL Hgb 13.8 13.2 (13.0-17.0) g/dL Hct 41.2 39.8 (39.6-50.0) % Plt Count 140 129 L (140-440) 10*3/uL Comprehensive Metabolic Panel 09/19/24 09/20/24 Range/Units 13:23 05:51 Sodium 139 138 (137-145) mmol/L Potassium 4.3 3.7 (3.5-5.1) mmol/L Chloride 107 107 (98-107) mmol/L Carbon Dioxide 24 25 (22-30) mmol/L BUN 24 H 30 H (9-20) mg/dL Creatinine 0.99 1.03 (0.66-1.25) mg/dL Glucose 136 H 102 H (74-99) mg/dL Calcium 8.5 8.2 L (8.4-10.2) mg/dL AST 25 20 (17-59) U/L ALT 19 18 (4-49) U/L Alkaline Phosphatase 45 53 (38-126) U/L Total Protein 5.9 L 5.5 L (6.3-8.2) g/dL Albumin 3.4 L 3.1 L (3.5-5.0) g/dL Current Medications Generic Name Dose Route Start Last Admin Trade Name Freq PRN Reason Stop Dose Admin Heparin Sodium (Porcine) 0 unit 09/19/24 14:11 09/20/24 00:17 Heparin Sodium 1,000 Un/Ml (10ml Vl) IV 2,475 unit PER PROTOCOL PRN Administration Low PTT Protocol Diltiazem HCl 125 mg/ Dextrose 125 mls @ 5 mls/hr 09/19/24 13:30 09/19/24 16:45 /Water IV 5 mg/hr .Q24H DENA 5 mls/hr Titration Protocol 5 MG/HR Heparin Sodium/Sodium Chloride 250 mls @ 9.999 mls/hr 09/19/24 14:15 09/20/24 00:19 25,000 unit/ Sodium Chloride IV 12.02 units/kg/hr .Q24H [facility] 11.995 mls/hr Titration Protocol 10.02 UNITS/KG/HR Naloxone HCl 0.2 mg 09/19/24 14:09 Naloxone 0.4 Mg/Ml 1 Ml Vial IV Q2M PRN Opioid Reversal Intake and Output 09/19/24 09/20/24 09/20/24 22:59 06:59 14:59 Intake Total 20.167 94.824 Balance 20.167 94.824 Intake: Intake, IV Titration 20. 94.824 Amount Diltiazem 125 mg In 20.167 Dextrose 5% in Water 100 ml @ 5 MG/HR 5 mls/hr IV .Q24H [facility] Rx#:[id number] Heparin Sod,Pork in 0.45% 94.824 NaCl 25,000 unit In 0.45 % NaCl 1 250ml.bag @ 10. 02 UNITS/KG/HR 9.999 mls/ hr IV .Q24H [facility] Rx#: [id number] 09/20/24 05:51 09/20/24 05:51
[2024-09-20 10:30] LABS: Chol/HDL Ratio 2.16 Ratio; LDL Cholesterol,Calculated 44.8 mg/dL (0.0-131.0)
--- NOTE | 2024-09-21 00:16 | P.DS ---
Providers Date of admission: 09/19/24 14:12 Attending physician: Laurent Wilson MD Consults: 09/19/24 14:09 Consult Physician Urgent Consulting Provider: Chava Kang Consult Reason/Comments: a fib Do you want consulting provider notified?: Yes Primary care physician: [facility] Course: Patient was admitted with new onset A-fib and RVR with syncope. 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 Per cardiology team echocardiogram can be done as an outpatient Patient also had elevated D-dimer therefore CTA of the chest was ordered which was negative for PE. Also was given IV fluid for hydration to decrease the chances of nephrotoxicity and other side effects. I got a Message from the bedside nurse that patient's wants to be discharged, we sent Eliquis to the pharmacy to find co-pay. In the meantime patient did not want to pay and left [place] before I have a chance to come and talk to him again. After leaving AM I called the patient on his cell phone I talked to him about the importance of picking up his prescription, his prescription for Eliquis and metoprolol was sent to the pharmacy in the hospital patient informed. He agrees and he told me he is coming tomorrow to pick it up. I explained to the patient he might have co-pay for Eliquis and if he does not agree with that he needs to talk to his doctor as soon as possible. Also patient instructed to follow-up with his doctor as soon as possible. Also patient instructed to come back to the emergency room if he feels he has to, he has symptoms or just changed his mind Based upon my evaluation patient had Make medical decision (Please refer to the progress note from today for more details) Patient Condition at Discharge: Serious Plan - Discharge Summary New Discharge Prescriptions: New Apixaban [Eliquis] 5 mg PO BID #60 tab Metoprolol Succinate (ER) [Toprol XL] 50 mg PO DAILY #30 tab Discharge Medication List Apixaban [Eliquis] 5 mg PO BID #60 tab 09/20/24 [Rx] Metoprolol Succinate (ER) [Toprol XL] 50 mg PO DAILY #30 tab 09/20/24 [Rx] Follow up Appointment(s)/Referral(s): Alexx Latham MD [STAFF PHYSICIAN] - 10/18/24 11:00 am Dayne Comer DO [Primary Care Provider] - 1-2 days Discharge Disposition: LEFT AGAINST MEDICAL ADVICE
== END 2024-09-20 11:56 | disposition left against medical advice (07) ==
LOC: EC 12:31 → INTOOBSV 14:12 → 3SCARD 14:12
PROVIDERS: ADMIT Internal Medicine; ATTEND Internal Medicine
DX: I48.91 Unspecified atrial fibrillation (principal); J44.9 Chronic obstructive pulmonary disease, unspecified; R79.89 Other specified abnormal findings of blood chemistry; R60.0 Localized edema; Z53.29 Procedure and treatment not carried out because of patient's decision for other reasons
CPT/HCPCS: 96376 ×2; 96365 ×2; 96366 ×2; 99291; 36415; 93005; 85379; 84439; 84481; 80061; 80053 ×2; 83735; 84443; 84484; 85025 ×2; 85610 ×2; 85730 ×2; 83036; 71046; 70450; 71275; J1644 ×3; Q9967